=== PATIENT | male | born 1945 | race Caucasian/White ===

== ENCOUNTER 2025-11-14 15:39 | Emergency (ER) | payer MEDICARE ==
[~2025-11-14] VITALS: Ht 177.8 cm; Wt 68.5 kg
[2025-11-14 15:40] VITALS: TEMP 98.3
[2025-11-14] MEDS ORDERED: KETOROLAC TROMETHAMINE INJ 30 MG/ML VIAL ONE (16:16)
[2025-11-14] MEDS: KETOROLAC TROMETHAMINE INJ 30 MG/ML VIAL IM ONE (16:27)
[2025-11-14 16:50] VITALS: BP 110/64; O2SAT 99
== END 2025-11-14 16:51 | disposition home or self-care (01) ==
LOC: ER 16:30
DX: S42.91XA Fracture of right shoulder girdle, part unspecified, initial encounter for closed fracture (principal); Z95.5 Presence of coronary angioplasty implant and graft; W01.0XXA Fall on same level from slipping, tripping and stumbling without subsequent striking against object, initial encounter; Y93.89 Activity, other specified; Y92.89 Other specified places as the place of occurrence of the external cause; Y99.8 Other external cause status
CPT/HCPCS: 99283; 96372; 73030; J1885; J7030